=== PATIENT | male | born 1980 | race Caucasian/White ===

== ENCOUNTER → 2018-04-08 17:08 | Outpatient (CLI) | payer OTHER, SELFPAY | PROVIDERS: PCP Nurse Practitioner Family; Visit Provider Nurse Practitioner Family | DX: S01.90XA Unspecified open wound of unspecified part of head, initial encounter (principal) | CPT/HCPCS: 87070; 87077; 87186; 87205 ==

== ENCOUNTER 2019-11-03 16:17 | Observation (INO) | payer OTHER, SELFPAY ==
--- NOTE | 2019-11-03 16:29 | XR_ITS ---
PROCEDURE: XR CHEST 2V CLINICAL HISTORY: drainage from stoma Smoker, shortness of air the COMPARISON: CXR CHEST(2 VIEWS-NOT PORTABLE) from 01/06/[address] [facility] CHEST W/O CONTRAST from 01/06/2017 FINDINGS: The cardiomediastinal silhouette and pulmonary vascularity are within normal limits. There is a calcified granuloma in the left lower lobe. The lungs are otherwise clear. There is some hyperostosis along the anterior aspect of the right 1st rib in the posterior aspect of the right 2nd rib IMPRESSION: No acute findings. Dictated by: Aric Anaya MD 11/03/2019 19:41 Electronically signed by Aric Anaya MD in [place] 11/03/2019 19:41
[2019-11-03 16:30] VITALS: BP 129/84; PULSE 100; RESP 20; TEMP 36.6; O2SAT 97; BMI 31.8
--- NOTE | 2019-11-03 17:08 | PC.NURSE ---
Notified PTWm about evaluation order
[2019-11-03 17:48] LABS: Chloride 101 mmol/L (98-107); Potassium 3.7 mmoL/L (3.5-5.1); Sodium 136 mmol/L (136-145)
[2019-11-03 17:51] LABS: Blood Urea Nitrogen 6 mg/dl (9-20); Calcium 9.6 mg/dl (8.4-10.2); Carbon Dioxide 26 mmol/L (22.0-30.0); Creatinine Clearance Estimated 182 mL/min (50-200); Estimated Glomerular Filt Rate 94 ml/min (>60); GFR (African American) 114 ML/MIN (>60); Glucose 114 mg/dl (74-100)
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
[2019-11-03 20:50] VITALS: BP 131/90; PULSE 88; RESP 18; TEMP 36.6; O2SAT 97
--- NOTE | 2019-11-04 03:33 | PC.NURSE ---
A&OX4. PT TOLERATING RA WELL THIS SHIFT. PT REMAINS IN BED T/O SHIFT. PT X2 ASSIST IN BED, PT VERY RELUCTANT TO LET NURSING STAFF HELP HIM AT BEGINNING OF SHIFT. PTs BOTTOM WAS DARK BROWN AND WITH STAGE 1 PRESSURE SORES PRESENT TO BILATERAL LOWER BUTTOCK. AREA CLEANED, KEPT DRY, AND PT ENCOURAGED TO TURN Q2H. PT TOLERATED BED BATH WELL, AND ENCOURAGED TO CHANGE POSITION T/O SHIFT. PT VERY HUNGRY, TOLERATING SNACKS THIS SHIFT. PT VERY EMOTIONAL T/O SHIFT. PT HAS CRIED MULTIPLE TIMES. PT HAS HAD NO COMPLAINTS T/O THIS SHIFT. RESTING COMFORTABLY IN BED. VSS WILL CONTINUE TO MONITOR.
[2019-11-04 04:00] VITALS: BP 115/71; PULSE 65; RESP 18; TEMP 36.8; O2SAT 98
[2019-11-04 05:00] VITALS: BMI 31.1
--- NOTE | 2019-11-04 05:47 | PC.NURSE ---
PT HAS REFUSED FLUIDS AND IV AT THIS TIME. PT STATES THAT IT CAUSES HIM TOO MUCH PAIN AND HE JUST CANNOT TAKE IT.
[2019-11-04 07:35] VITALS: BP 126/74; PULSE 81; RESP 17; TEMP 36.5; O2SAT 100
--- NOTE | 2019-11-04 08:35 | HMH.PHAVTE ---
[facility] VTE Monitoring - Patient Demographics Admission date: 11/04/19 Report Date: 11/04/19 Time: 08:35 Allergies/Adverse Reactions: Patient Allergies No Known Allergies Allergy (Verified 11/03/19 14:45) Height: 1.91 m Weight: 113.852 kg - VTE Risk Labs: VTE Related Lab Results BUN 6 mg/dl (9-20) L 11/03/19 17:30 Creatinine 0.90 mg/dl (0.66-1.25) 11/03/19 17:30 Estimated Creat Clear 182 mL/min (50-200) 11/03/19 17:30 VTE Score: 1 - Prophylaxis Types of VTE Prophylaxis: TEDS Knee High (BRISSA HOSE ORDER PLACED) Location of Applied Device: Refused
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
[2019-11-04 10:46] LABS: Alanine Aminotransferase 46 U/L (12-78); Albumin Level 4.4 g/dl (3.5-5.0); Albumin/Globulin Ratio 1.4 (1.1-1.8); Alkaline Phosphatase 65 U/L (38-126); Anion Gap 9.9 mEq/L (5-15); Aspartate Amino Transferase 33 U/L (17-59); Bilirubin,Total 1.9 mg/dl (0.2-1.3); Blood Urea Nitrogen 8 mg/dl (9-20); Calcium 9.6 mg/dl (8.4-10.2); Carbon Dioxide 28 mmol/L (22.0-30.0); Chloride 102 mmol/L (98-107); Creatinine Clearance Estimated 161 mL/min (50-200); Estimated Glomerular Filt Rate 84 ml/min (>60); GFR (African American) 101 ML/MIN (>60); Globulin 3.2 g/dL (1.3-3.2); Glucose 102 mg/dl (74-100); Potassium 3.9 mmoL/L (3.5-5.1); Sodium 136 mmol/L (136-145); Total Protein,Serum 7.6 g/dl (6.3-8.2)
[2019-11-04 10:50] LABS: Basophils # 0.2 K/mm3 (0-0.2); Basophils % 2.2 % (0.1-2.0); Eosinophils # 0.3 K/mm3 (0.0-0.4); Eosinophils % 2.4 % (0.1-12.0); Hematocrit 51.8 % (42.0-52.0); Lymphocytes # 4.1 K/mm3 (0.7-4.5); Lymphocytes % 36.5 % (10-50); Mean Corpuscular HGB Conc 34.8 g/dL (31.8-35.4); Mean Corpuscular Hemoglobin 29.8 pg (27.0-31.2); Mean Corpuscular Volume 85.7 fl (80-94); Mean Platelet Volume 7.6 fl (7.4-10.4); Monocytes # 0.6 K/mm3 (0.1-1.0); Monocytes % 5.4 % (1.7-9.3); Neutrophils % 53.5 % (37.0-80.0); Platelet Count 350 K/mm3 (142-424); Red Blood Count 6.04 M/mm3 (4.60-6.20); Red Cell Distribution Width 14.6 % (11.5-17.5); White Blood Count 11.2 K/mm3 (4.8-10.8)
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
[2019-11-04 15:37] VITALS: BP 124/71; PULSE 85; RESP 20; TEMP 36.7; O2SAT 99
[2019-11-04 19:53] VITALS: BP 119/71; PULSE 79; RESP 16; TEMP 36.4; O2SAT 98
--- NOTE | 2019-11-04 20:19 | PC.NURSE ---
PATIENT HAS SAT ON SIDE OF BED 2X DURING THIS RN SHIFT. PATIENT TOLERATED WELL. PATIENT HAS COMPLAINED OF IV. THIS RN HAS EXPLAINED TO PATIENT THAT HE NEEDS FLUIDS TO STAY HYDRATED. PATIENT VERBALIZED AN UNDERSTANDING. NO OTHER NEEDS AT THIS TIME.
[2019-11-05 04:00] VITALS: BP 116/69; PULSE 78; RESP 18; TEMP 36.4; O2SAT 97
--- NOTE | 2019-11-05 04:44 | PC.NURSE ---
A&O X4. PT RESTED WELL THIS AM WITH EYES CLOSED. C/O PAIN IN LEFT HAND FROM PREVIOUS FALL. ADMIN TYLENOL PER MAR PER PT REQUEST. UPON REASSESSMENT PT STATES ADEQUATE PAIN RELIEF. BILATERAL LUNGS NOTED CLEAR T/O UPON AUSCULTATION. TOLERATED RA WELL WITH NO COMPLAINTS. MILD WEAKNESS NOTED ON LEFT SIDE EXTREMITIES, PT BASELINE FROM PREVIOUS CVA. NO N/V/D NOTED. NO EDEMA NOTED. USE OF URINAL INDEPENDENTLY AT BEDSIDE. URINE NOTED CLEAR AND DARK YELLOW IN COLOR. REFUSED TEDS. VSS. REMAINS SAFE. CALL LIGHT WITHIN REACH. WILL CONTINUE TO MONITOR.
[2019-11-05 05:00] VITALS: BMI 31.5
[2019-11-05 07:10] VITALS: BP 116/77; PULSE 77; RESP 20; TEMP 36.6; O2SAT 96
--- NOTE | 2019-11-05 10:10 | HMH.ACPN2 ---
Internal Medicine - PN: Subj *Date: 11/05/19 *Time: 09:10 Interval history: pt states he rested well. no c/o at this time Exam Vital signs and Labs for Last 24 Hours: Temp Pulse Resp BP Pulse Ox 97.9 F 77 20 116/77 96 11/05/19 07:10 11/05/19 07:10 11/05/19 07:10 11/05/19 07:10 11/05/19 07:10 Laboratory Results - last 24 hr 11/04/19 10:20: WBC 11.2 H, RBC 6.04, Hgb 18.0, Hct 51.8, MCV 85.7, MCH 29.8, MCHC 34.8, RDW 14.6, Plt Count 350, MPV 7.6, Neut % (Auto) 53.5, Lymph % (Auto) 36.5, [place] % (Auto) 5.4, Eos % (Auto) 2.4, Baso % (Auto) 2.2 H, Neut # (Auto) 6.0, Lymph # (Auto) 4.1, [place] # (Auto) 0.6, Eos # (Auto) 0.3, Baso # (Auto) 0.2 11/04/19 10:20: Sodium 136, Potassium 3.9, Chloride 102, Carbon Dioxide 28, Anion Gap 9.9, BUN 8 L D, Creatinine 1.00, Estimated Creat Clear 161, Estimated GFR 84, Est GFR ( Amer) 101, Glucose 102 H, Calcium 9.6, Total Bilirubin 1.9 H, AST 33, ALT 46, Alkaline Phosphatase 65, Total Protein 7.6, Albumin 4.4, Globulin 3.2, Albumin/Globulin Ratio 1.4 I & O for Last 24 hours: Intake & Output 11/02/19 11/03/19 11/04/19 11/05/19 11:59 11:59 11:59 11:59 Intake Total 1949 / 1949 1633 / 1633 Output Total 1000 / 1000 1300 / 1300 Balance 949 / 949 333 / 333 Weight 251 lb 253 lb 6 oz - Constitutional no acute distress, chronically ill appearing - *Routine HEENT Exam Head: Present: normocephalic Eye: Present: PERRL ENT: Present: mucous membranes moist Comments: rt lateral skull concave- old head trauma - *Routine Neck Exam Present: supple. Absent: lymphadenopathy Comments: old trache stoma with yellow discharge - *Routine Respiratory Exam Present: CTA bilaterally - *Routine Cardiovascular Exam Present: RRR - *Routine Abdominal Exam Present: soft, normoactive bowel sounds. Absent: tenderness - *Routine Extremities Exam Absent: cyanosis, clubbing, edema - *Routine Skin Exam Present: warm, wounds. Absent: rash Comments: stage 1 on suzi buttocks - *Routine Neurological Exam Present: alert, oriented X3 left side weakness- old cva upper ext contracture to hand and limited rom - Routine Psychiatric Exam Present: normal affect Assessment and Plan (1) Seizure after head injury Current visit: Yes Status: Acute Category: Medical Code(s): R56.1 - Post traumatic seizures (2) Wheelchair bound Current visit: Yes Status: Acute Category: Medical Code(s): Z99.3 - Dependence on wheelchair (3) Depressed Current visit: Yes Status: Acute Qualifiers: Depression Type: reactive depression Qualified Code(s): F32.9 - Major depressive disorder, single episode, unspecified Category: Medical Code(s): F32.9 - Major depressive disorder, single episode, unspecified (4) TBI (traumatic brain injury) Current visit: No Status: Chronic Qualifiers: Encounter type: sequela Loss of consciousness presence/duration: with LOC of unspecified duration Qualified Code(s): S06.9X9S - Unspecified intracranial injury with loss of consciousness of unspecified duration, sequela Category: Medical Code(s): S06.9X9A - Unspecified intracranial injury with loss of consciousness of unspecified duration, initial encounter - Assessment and plan all Dx Assessment and Plan for all problems:: discussed pt with dr carnes all orders per trice carnes to see pt later today wait rehab placement
[2019-11-05 15:40] VITALS: BP 125/59; PULSE 86; RESP 18; TEMP 36.7; O2SAT 96
--- NOTE | 2019-11-05 18:43 | INFXCTL.NOTE ---
Pt is alert and oriented and able to make needs known verbally. RR even and unlabored. Has had no complaints this shift and has ate well. IV SL in RFA. CB in easy reach. VSS. Have encouraged pt to turn and reposition, he has some, but refused to completely turn and stay on side from supine position. Have explained reasoning. Will cont to encourage. Voids per urinal.
[2019-11-05 19:55] VITALS: BP 111/59; PULSE 90; RESP 18; TEMP 36.7; O2SAT 96
--- NOTE | 2019-11-05 20:30 | PC.NURSE ---
Pt alert and oriented and able to make needs known x4. RR even and unlabored. Have encouraged pt to turn and reposition completely from supine position and he has refused, but is able to move independently in bed. Have educated on why pt needs to turn completely from supine position. Pt verbs understanding. VSS. Has had no complaints this shift. NAD. Lungs cta, s1,s2 noted. Has voided per urinal this shift and ate well. CB in reach.
[2019-11-06 04:00] VITALS: BP 120/77; PULSE 76; RESP 18; TEMP 36.5; O2SAT 95
[2019-11-06 05:00] VITALS: BMI 31.7
--- NOTE | 2019-11-06 05:16 | PC.NURSE ---
A&O X4. NO ACUTE CHANGES NOTED FROM PREVIOUS SHIFT. PT RESTED WELL T/O SHIFT WITH EYES CLOSED. TOLERATED RA WELL WITH NO C/O SOA. C/O PAIN AT IV SITE ON PT'S RIGHT WRIST. PT ALSO STATES IV TUBING IS AN INCONVENIENCE, HE KEEPS BUMPING IT ON THINGS. NO S/S OR IRRITATION OR INFILTRATION. PT AGREED TO KEEP IV IN PLACE, MOVED BEDSIDE TABLE AWAY FROM OVER THE BED TO DECREASE CHANGES OF HITTING IV SITE. IV FLUSHES WELL. NO FURTHER COMPLAINTS T/O SHIFT. ALLOWED STAFF TO Q2H TURN HIM FOR PRESSURE RELIEF OFF BUTTOCKS. REFUSED TO GET OOB THIS SHIFT. ENCOURAGED PT TO GET UP TO CHAIR THIS AM FOR BREAKFAST. WILL CONTINUE TO MONITOR. REFUSED TEDS. REMAINS SAFE. CALL LIGHT WITHIN REACH. URINE NOTED CLEAR AND DARK YELLOW IN COLOR. INDEPENDENT USE OF URINAL AT BEDSIDE.
[2019-11-06 08:00] VITALS: BP 132/69; PULSE 92; RESP 20; TEMP 36.4; O2SAT 97
--- NOTE | 2019-11-06 08:47 | P.PN_ITS ---
Internal Medicine - PN: Subj *Date: 11/08/19 *Time: 06:51 Interval history: doing better- more alert Exam Vital signs and Labs for Last 24 Hours: Temp Pulse Resp BP Pulse Ox 97.6 F 92 H 20 132/69 97 11/06/19 08:00 11/06/19 08:00 11/06/19 08:00 11/06/19 08:00 11/06/19 08:00 I & O for Last 24 hours: Intake & Output 11/03/19 11/04/19 11/05/19 11/06/19 11:59 11:59 11:59 11:59 Intake Total 1949 / 1949 1633 / 1633 1700 / 1700 Output Total 1000 / 1000 1550 / 1550 1750 / 1750 Balance 949 / 949 83 / 83 -50 / -50 Weight 251 lb 253 lb 6 oz 255 lb 8 oz - Constitutional no acute distress, obese - *Routine HEENT Exam Head: Present: normocephalic Eye: Present: EOMI, PERRL ENT: Present: mucous membranes dry - *Routine Neck Exam Absent: JVD - *Routine Respiratory Exam Present: decreased breath sounds - *Routine Cardiovascular Exam Present: RRR - *Routine Abdominal Exam Present: soft - *Routine Extremities Exam Absent: calf tenderness - *Routine Skin Exam Present: intact - *Routine Neurological Exam Present: alert, CN II-XII intact - Routine Psychiatric Exam Absent: good insight Assessment and Plan (1) Seizure after head injury Current visit: Yes Status: Acute Category: Medical Code(s): R56.1 - Post traumatic seizures (2) Wheelchair bound Current visit: Yes Status: Acute Category: Medical Code(s): Z99.3 - Dependence on wheelchair (3) Depressed Current visit: Yes Status: Acute Qualifiers: Depression Type: reactive depression Qualified Code(s): F32.9 - Major depressive disorder, single episode, unspecified Category: Medical Code(s): F32.9 - Major depressive disorder, single episode, unspecified (4) TBI (traumatic brain injury) Current visit: No Status: Chronic Qualifiers: Encounter type: sequela Loss of consciousness presence/duration: with LOC of unspecified duration Qualified Code(s): S06.9X9S - Unspecified intracranial injury with loss of consciousness of unspecified duration, sequela Category: Medical Code(s): S06.9X9A - Unspecified intracranial injury with los s of consciousness of unspecified duration, initial encounter
[2019-11-06 10:57] LABS: Basophils # 0.2 K/mm3 (0-0.2); Basophils % 2.5 % (0.1-2.0); Eosinophils # 0.4 K/mm3 (0.0-0.4); Eosinophils % 4.1 % (0.1-12.0); Hematocrit 52.6 % (42.0-52.0); Hemoglobin 17.8 g/dL (14.1-18.0); Lymphocytes % 32.4 % (10-50); Mean Corpuscular HGB Conc 33.8 g/dL (31.8-35.4); Mean Corpuscular Volume 88.7 fl (80-94); Mean Platelet Volume 7.8 fl (7.4-10.4); Monocytes # 0.4 K/mm3 (0.1-1.0); Monocytes % 4.7 % (1.7-9.3); Neutrophils # 5.3 K/mm3 (1.8-7.8); Neutrophils % 56.3 % (37.0-80.0); Platelet Count 295 K/mm3 (142-424); Red Blood Count 5.93 M/mm3 (4.60-6.20); Red Cell Distribution Width 14.9 % (11.5-17.5); White Blood Count 9.3 K/mm3 (4.8-10.8)
[2019-11-06 11:10] LABS: Anion Gap 10.3 mEq/L (5-15); Blood Urea Nitrogen 9 mg/dl (9-20); Calcium 9.6 mg/dl (8.4-10.2); Carbon Dioxide 27 mmol/L (22.0-30.0); Chloride 103 mmol/L (98-107); Creatinine Clearance Estimated 205 mL/min (50-200); Estimated Glomerular Filt Rate 108 ml/min (>60); GFR (African American) 131 ML/MIN (>60); Glucose 93 mg/dl (74-100); Potassium 4.3 mmoL/L (3.5-5.1); Sodium 136 mmol/L (136-145)
[2019-11-06 11:33] LABS: T4 (Thyroxine) 9.4 ug/dl (5.53-11.0)
[2019-11-06 16:00] VITALS: BP 127/70; PULSE 81; RESP 20; TEMP 36.9; O2SAT 100
--- NOTE | 2019-11-06 19:14 | PC.NURSE ---
report given to savanah
[2019-11-06 20:00] VITALS: BP 145/64; PULSE 99; RESP 20; TEMP 36.9; O2SAT 97
[2019-11-07 03:42] VITALS: BP 137/71; PULSE 76; RESP 17; TEMP 36.6; O2SAT 98
[2019-11-07 05:00] VITALS: BMI 32.8
--- NOTE | 2019-11-07 05:08 | PC.NURSE ---
No acute changes this shift. Pt rang out frequently for snacks and for his urinal to be emptied. Pt is voiding clear, yellow urine independently using urinal. No BM this shift. Pt is repositioning himself in bed independently. Staff has pulled pt up in bed on occasions. VSS.
[2019-11-07 08:00] VITALS: BP 106/67; PULSE 77; RESP 18; TEMP 36.7; O2SAT 99
--- NOTE | 2019-11-07 10:01 | P.PN_ITS ---
Internal Medicine - PN: Subj *Date: 11/07/19 *Time: 10:03 Interval history: 39-year-old male patient laying in bed resting quietly, awakens to verbal stimuli. He denies any needs or concerns at this time says he is ready to begin therapies. Exam Vital signs and Labs for Last 24 Hours: Temp Pulse Resp BP Pulse Ox 98.1 F 77 18 106/67 L 99 11/07/19 08:00 11/07/19 08:00 11/07/19 08:00 11/07/19 08:00 11/07/19 08:00 Laboratory Results - last 24 hr 11/06/19 10:40: WBC 9.3, RBC 5.93, Hgb 17.8, Hct 52.6 H, MCV 88.7, MCH 30.0, MCHC 33.8, RDW 14.9, Plt Count 295, MPV 7.8, Neut % (Auto) 56.3, Lymph % (Auto) 32.4, [place] % (Auto) 4.7, Eos % (Auto) 4.1, Baso % (Auto) 2.5 H, Neut # (Auto) 5.3, Lymph # (Auto) 3.0, [place] # (Auto) 0.4, Eos # (Auto) 0.4, Baso # (Auto) 0.2 11/06/19 10:40: Sodium 136, Potassium 4.3, Chloride 103, Carbon Dioxide 27, Anion Gap 10.3, BUN 9, Creatinine 0.80, Estimated Creat Clear 205, Estimated GFR 108, Est GFR ( Amer) 131 D, Glucose 93, Calcium 9.6 11/06/19 10:40: TSH 3.00, Thyroxine (T4) 9.4 I & O for Last 24 hours: Intake & Output 11/04/19 11/05/19 11/06/19 11/07/19 23:59 23:59 23:59 23:59 Intake Total 2612 / 2612 1570 / 1570 2800 / 2800 940 / 940 Output Total 1650 / 1650 1450 / 1450 1999 / 1999 750 / 750 Balance 962 / 962 120 / 120 800 / 800 190 / 190 Weight 251 lb 253 lb 6 oz 255 lb 8 oz 264 lb 7 oz - Constitutional no acute distress - *Routine HEENT Exam ENT: Present: mucous membranes moist - *Routine Neck Exam Present: full ROM, trachea midline. Absent: JVD, tracheal deviation - *Routine Respiratory Exam Present: CTA bilaterally. Absent: accessory muscle use - *Routine Cardiovascular Exam Present: RRR - *Routine Abdominal Exam Present: soft, normoactive bowel sounds. Absent: firm - *Routine Extremities Exam Absent: calf tenderness - *Routine Skin Exam Present: wounds Comments: STG I Bilat buttocks - *Routine Neurological Exam Present: alert, oriented X3 Left side weakness- old cva upper ext contracture to hand and limited rom Assessment and Plan (1) Seizure after head injury Current visit: Yes Status: Acute Category: Medical Code(s): R56.1 - Post traumatic seizures (2) Wheelchair bound Current visit: Yes Status: Acute Category: Medical Code(s): Z99.3 - Dependence on wheelchair (3) Depressed Current visit: Yes Status: Acute Qualifiers: Depression Type: reactive depression Qualified Code(s): F32.9 - Major depressive disorder, single episode, unspecified Category: Medical Code(s): F32.9 - Major depressive disorder, single episode, unspecified (4) TBI (traumatic brain injury) Current visit: No Status: Chronic Qualifiers: Encounter type: sequela Loss of consciousness presence/duration: with LOC of unspecified duration Qualified Code(s): S06.9X9S - Unspecified intracranial injury with loss of consciousness of unspecified duration, sequela Category: Medical Code(s): S06.9X9A - Unspecified intracranial injury with loss of consciousness of unspecified duration, initial encounter - Assessment and plan all Dx Assessment and Plan for all problems:: Rounded with Dr. Maya, all orders per Dr. Maya 1. Awaiting skilled nursing placement
--- NOTE | 2019-11-07 10:10 | SW/DCPLANNER ---
Addendum entered by [facility] 11/08/19 10:02: Bruna from [facility] has called me back stating that this patient is NOT appropriate for [facility] at this time. I am currently waiting to hear back from Valery with [facility] and Jayme from [facility] Waiver. Addendum entered by [facility] 11/07/19 19:39: Patient has signed all paperwork from Valery at [facility] regarding [facility] Waiver services. Addendum entered by [facility] 11/07/19 16:26: Valery from [facility] has been in contact with [facility] and [place]. Addendum entered by [facility] 11/07/19 14:51: [facility] has refused this patient. Valery from [facility] is reviewing this patients information and will be in contact with [facility]. Jayme from [facility] is reviewing patient information and will begin Waiver process to see what services are available for this patient. Addendum entered by [facility] 11/07/19 14:27: Valery from [facility] has stated that her thoughts are patient would be a good candidate for [facility] and that she will assist with this process. Valery has also stated that she is going to fax me information for patient and MD to begin Waiver process for this patient. I will continue to follow up with Valery regarding this patient. Addendum entered by [facility] 11/07/19 13:51: I have spoke with Joi and patients sister (MARIYA) Kelli. Joi has stated that she has also been searching for placement for this patient for the past couple months. Joi has stated that she would be fine with this patient discharging home with home health services (previously used [facility]) and [facility] Waiver services. I have contacted Jayme with [facility] regarding which services this patient would be a candidate for: she will review and contact me back this afternoon or in the AM. Patients sister stated that she would agree with this plan as well. I am waiting to hear back from Jayme regarding [facility] Waiver services and I am currently waiting to hear back from [facility]. I will continue to follow up with all services/facilities, [facility], and patient/family. Addendum entered by [facility] 11/07/19 13:18: [facility] have stated that they can NOT take this patient and have evaluated this patient in the past. Taniya with [facility] has stated that since patient has such a soft spot in his head and does not wear a helmet they can NOT accept this patient nor can any of their sister facilities. I did receive a voicemail from Joi with [facility] and I will attempt to contact her back. Addendum entered by [facility] 11/07/19 11:35: Bel with [facility] has called back stated they can NOT meet this patients needs at this time. Patient information has also been faxed to [facility] and [facility]. Addendum entered by [facility] 11/07/19 11:04: Patient information has also been faxed to [facility] at this time. Original Note: This patient was residing with his sister prior to hospital admission. Patient was admitted OBS to [facility] on Wednesday11/03/19 for placement purposes. Patients sister has stated that she is unable to care for patient at this time and he is need of placement for rehab. I have spoke with this patient this morning regarding rehab placement. Patient stated that he is willing to go anywhere for placement and does not have to be in [facility]. I have informed patient that he will be TYRA pending, must stay at least 30 days and his payment will be most of his monthly income check. Patient is agreeable to situation. At this time facilities that do NOT have beds: [facility], [facility], [facility], and [facility]. Patient information has been faxed to [facility] at this time.
--- NOTE | 2019-11-07 12:05 | HMH.OTEV ---
OT Inpatient Evaluation Rehab OT IP Evaluation Start: 11/03/19 16:42 Freq: ONCE Status: Complete Protocol: Document 11/07/19 11:57 CHRIS (Rec: 11/07/19 12:05 [id number] Rehab OT IP Assessment Subjective History Pt oriented x 3 on arrival. Pt agreeable to engage in therapy evaluation. Pt was admitted via Dr. Maya's office for weakness on 2019. Pt has a past medical history of TBI (2018), CVA ( 2018), hepatitis, HTN, and seizures. Pt reports prior to being admitted to the hospital he lived at home with his sister. He explains he was able to dress and feed himself, but he was unable to shower on his own. Pt reports usually his sister completes all IADLs like cleaning, cooking, and laundry. Pt did use a walker and wheelchair for transfers. Pt explains he has become increasingly weaker and he wants to get stronger and be able to do more for himself. Subjective I need to be able to do more. Objective Patient Orientation Person,Place,Birthday Upper Extremity Gross ROM Mod Limitation 50% Shoulder ROM Limitations Muscle Weakness Elbow ROM Limitations Muscle Weakness Wrist Limitations of Range of Motion Muscle Weakness Bed Mobility bed mobility-scooting,bed mobility - supine/sit,bed mobility - rolling Assist Level Supervision/Stand by Transfer Training Sit/Stand Transfer Assist Level Minimal x 1 (25% assist) Feeding Ability Independent Lower Body Dressing Ability Standby Assistance Upper Body Dressing Ability Standby Assistance Rehab OT IP prob,goals,plan Problems Date of Evaluation: 11/07/19 OT IP Problems Bed Mobility,Transfers,Gait, Balance,Self care,Safety Rehab Potential Rehab Potential Good Equipment Needs Assistive Devices Rolling / Wheeled Walker Plan OT intervention Plan Bed Mobility,Transfers,Gait, Balance,Self care,Safety,
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
[2019-11-07 16:00] VITALS: BP 135/68; PULSE 65; RESP 14; TEMP 36.9; O2SAT 99
--- NOTE | 2019-11-07 18:58 | PC.NURSE ---
PT IS RESTING IN BED. NO COMPLAINTS OF PAIN OR SOA. PT HAS BEEN EATING AND DRINKING ALL SHIFT. PT PARTICIPATED GETTING OOB WITH PHYSICAL THERAPY BUT WANTED TO GO BACK TO BED AFTER 30 MIN. OF BEING UP IN THE CHAIR. VOIDING PER URINAL . ALERT AND ORIENTED X4. LEFT SIDED WEAKNESS NOTED. VSS. LUNG SOUNDS CLEAR. BOWEL SOUNDS NORMAL. WILL CONTINUE TO MONITOR.
[2019-11-07 20:01] VITALS: BP 141/81; PULSE 97; RESP 18; TEMP 36.8; O2SAT 98
[2019-11-08 04:00] VITALS: BP 113/81; PULSE 76; RESP 18; TEMP 36.7; O2SAT 95
[2019-11-08 04:47] VITALS: BMI 32.9
--- NOTE | 2019-11-08 06:52 | PC.NURSE ---
A&O X4. PT RESTED INTERMITTENTLY T/O SHIFT WITH EYES CLOSED. NO ACUTE CHANGES NOTED FROM PREVIOUS SHIFT. TOLERATED RA WELL WITH NO C/O SOA. PT ABLE TO SELF TURN IN BED. NO C/O PAIN AT IV SITE THIS SHIFT. IV FLUSHES WELL, REMAINS SL. PT UP TO CHAIR THIS AM WITH ASSIST X2. PT'S APPETITE EXCELLENT. REFUSED TEDS. VOIDING PER URINAL AT BEDSIDE. URINE NOTED CLEAR, DARK YELLOW WITH STRONG ODOR. VSS. REMAINS SAFE. SEIZURES PADS REMAIN IN PLACE. CALL LIGHT WITHIN REACH. WILL CONTINUE TO MONITOR.
[2019-11-08 08:00] VITALS: BP 147/66; PULSE 79; RESP 12; TEMP 36.7; O2SAT 97
--- NOTE | 2019-11-08 08:34 | HMH.ACPN2 ---
Internal Medicine - PN: Subj *Date: 11/08/19 *Time: 08:34 Exam Vital signs and Labs for Last 24 Hours: Temp Pulse Resp BP Pulse Ox 98.1 F 76 18 113/81 95 11/08/19 04:00 11/08/19 04:00 11/08/19 04:00 11/08/19 04:00 11/08/19 04:00 I & O for Last 24 hours: Intake & Output 11/05/19 11/06/19 11/07/19 11/08/19 11:59 11:59 11:59 11:59 Intake Total 1633 / 1633 1700 / 1700 3120 / 3120 10 Output Total 1550 / 1550 1750 / 1750 2200 / 2200 2049 / 2049 Balance 83 / 83 -50 / -50 920 / 920 -0 / -0 Weight 253 lb 6 oz 255 lb 8 oz 264 lb 7 oz 265 lb 3 oz Assessment and Plan (1) Seizure after head injury Current visit: Yes Status: Acute Category: Medical Code(s): R56.1 - Post traumatic seizures (2) Wheelchair bound Current visit: Yes Status: Acute Category: Medical Code(s): Z99.3 - Dependence on wheelchair (3) Depressed Current visit: Yes Status: Acute Qualifiers: Depression Type: reactive depression Qualified Code(s): F32.9 - Major depressive disorder, single episode, unspecified Category: Medical Code(s): F32.9 - Major depressive disorder, single episode, unspecified (4) TBI (traumatic brain injury) Current visit: No Status: Chronic Qualifiers: Encounter type: sequela Loss of consciousness presence/duration: with LOC of unspecified duration Qualified Code(s): S06.9X9S - Unspecified intracranial injury with loss of consciousness of unspecified duration, sequela Category: Medical Code(s): S06.9X9A - Unspecified intracranial injury with loss of consciousness of unspecified duration, initial encounter
[2019-11-08 09:01] VITALS: PULSE 79; RESP 12; O2SAT 97
--- NOTE | 2019-11-08 10:39 | SW/DCPLANNER ---
Addendum entered by [facility] 11/08/19 17:01: I have contacted patients sister (Kelli) stating that patient is now ready for discharge. Kelli stated that she has been having car trouble and hopes to come this evening to pick patient up. I have again informed Kelli that this patient is ready for discharge. Addendum entered by [facility] 11/08/19 15:10: Mary Alice with [employer] has stated that Trapeze bar order must be approved by insurance. [facility] will follow up with patient/sister once approved. Addendum entered by [facility] 11/08/19 13:36: Jad from [facility] has stated they will accept this patient for home health services. Addendum entered by [facility] 11/08/19 11:50: Patient information has been faxed to [facility] for a trapeze bar and to [facility] for home health services. Addendum entered by [facility] 11/08/19 10:51: I did speak with patients sister and she is agreeable with this plan. Sister stated that she does feel safe taking this patient home today. Sister stated that she will be able to transport patient home later today. I will set up home health services. I did offer to order a Sandra Lift for this patient and sister stated that was not necessary at this time. Sister did ask about a bar for hospital bed to assist in pulling himself up. I will follow up with [facility] regarding this DME. Original Note: I have attempted to find placement for this patient: [place], [place], [place], [facility], [facility], [facility], [facility], [facility] and [facility]. No SNF level of care if willing to accept this patient at this time. I have spoke with Valery from [facility] regarding referral that was faxed to her. Valery spoke with [facility] whom has also denied this patient. Valery has stated that she will continue to follow up with this patient, set up at home services and add patient to residential waiting list as soon as all guidelines are lifted due to pandemic. Patients sister was agreeable to take patient home yesterday. I have made several attempts this morning to contact patients sister but her phone is currently turned off. I will continue to contact sister regarding discharge plan: discharging home with sister, sister stated that she has other help at home, set up home health services, Valery with [facility] to continue T[facility]RA waiver service process and residential waiting list. MD agrees with this plan. I have also spoke with Joi from [facility] and she concurs with this plan as well. I will inform patient. Patient will discharge home later today. I will set patient up with home health services.
--- NOTE | 2019-11-08 10:56 | PC.NURSE ---
Pt will need a trapeze bar for assistance to get in and out of bed.
[2019-11-08 16:00] VITALS: BP 126/74; PULSE 81; RESP 12; TEMP 36.8; O2SAT 97
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
--- NOTE | 2019-11-08 17:48 | PC.NURSE ---
Discharge has been completed. IV DC'd. Pt is currently awaiting a ride home.
--- NOTE | 2019-11-08 19:09 | PC.NURSE ---
report given to ac
--- NOTE | 2019-11-08 19:18 | SW/DCPLANNER ---
Patients sister will not answer my phone call at this time. I did informed sister this evening on the phone that patient is ready for discharge.
[2019-11-08 20:00] VITALS: BP 129/69; PULSE 92; RESP 17; TEMP 36.6; O2SAT 96
--- NOTE | 2019-11-08 21:31 | PC.NURSE ---
notified dr carnes of pt's sister not arriving nor answering her phone for pt's d/c pickup this evening.
--- NOTE | 2019-11-08 22:48 | PC.NURSE ---
spoke with carline, pt's sister/caregiver. she informed me that she would not be able to pickup the pt this evening. this rn attempted to call her 3 times since 1899, leaving one voicemail for return phone call. she states her car broke down earlier today and she has been trying to find a ride to come get him. she has spent her evening walking [place] [address] to get help. she plans to sell her car in the am and use the money to purchase a prepaid card so she can get to [place] and rent a car. she plans to rent a car so she can pick him up tomorrow afternoon. this rn instructed her to please call [facility] and keep staff informed of her plan of action tomorrow so we can plan for discharge. carline states she will call before lunch.
[2019-11-09 04:00] VITALS: BP 115/82; PULSE 68; RESP 16; TEMP 36.7; O2SAT 100
[2019-11-09 05:00] VITALS: BMI 32.5
--- NOTE | 2019-11-09 06:28 | PC.NURSE ---
NO ACUTE CHANGES NOTED SINCE PREVIOUS SHIFT. CONTINUE TO AWAIT FOR RIDE FOR D/C HOME WITH HOME HEALTH. SPOKE WITH PT'S SISTER LAST NIGHT, STATES SHE WILL BE HERE TODAY TO PICK HIM UP. REMAINS A&O X4. NO PAIN. NO SOA. TOLERATES RA WELL. PT ABLE TO SELF TURN WHILE LAYING IN BED. REFUSED TEDS. NO IV ACCESS THIS SHIFT. EXCELLENT APPETITE, REQUESTED MULTIPLE SNACKS AND SODAS THIS SHIFT. ENCOURAGED PT TO DRINK MORE WATER. VSS. REMAINS SAFE. SEIZURE PADS REMAIN IN PLACE. CALL LIGHT WITHIN REACH. WILL CONTINUE TO MONITOR.
[2019-11-09 08:00] VITALS: BP 125/78; PULSE 73; RESP 16; TEMP 36.6; O2SAT 97
[2019-11-09 09:59] LABS: Levetiracetam (Keppra) <1.0 ug/mL (10.0-40.0)
--- NOTE | 2019-11-09 10:58 | SW/DCPLANNER ---
Addendum entered by [facility] 11/13/19 19:41: [facility] has called back stating they did attempt to get in touch with this patient today with no answer. [facility] will NOT begin services for this patient. Addendum entered by [facility] 11/10/19 11:59: [facility] has called me back and stated they have attempted to contact patients family and there was no answer. [facility] has stated due to no answer they can not admit patient to services. I have notified Joi with [facility] regarding situation. Addendum entered by [facility] 11/10/19 11:45: Glo from [facility] stated that they will begin services for this patient. Addendum entered by [facility] 11/10/19 11:16: Patient information has been faxed to [facility]. Addendum entered by [facility] 11/09/19 18:56: Facilities reviewing patient referrals at this time: [facility], [facility], per Daina's request: [facility] along with [facility]. I will follow up with facilities in the AM. Patients sister has not arrived to [facility] to transport patient home. I did get ahold of [phone] number she called off of earlier and patients neighbor answered and stated that Kelli wasnt there she was in town. Addendum entered by [facility] 11/09/19 18:38: Several attempts has been made by myself to contact patients sister with no answer: voice messages have been left. Addendum entered by [facility] 11/09/19 16:09: [facility] has denied this patient. I was able to speak with patients sister at [phone]...sister stated that she will be here this afternoon to pick patient up. I will set up home health services for this patient once discharging home. I will also continue to follow up with LTC facilities regarding referral along with [facility]. Addendum entered by [facility] 11/09/19 15:12: Patient information has also been faxed to Judit Jimenez) at [phone]. Addendum entered by [facility] 11/09/19 14:59: Michelle from [facility] has called back stating they do have male [facility] beds available: patient information has been faxed ([phone]). Addendum entered by [facility] 11/09/19 14:53: I have also contacted: Jono Flores (not accepting new admissions), Jose (voicemail left for admissions), Briana (voicemail left for Ninoska in Admissions) and Kayla ([facility] bed available) information faxed. [facility] is currently looking into this patient as well. I have also left a voice message with Yadira at [facility] at [phone]. Addendum entered by [facility] 11/09/19 14:42: Patient does technically reside in [facility]. I have contact [facility] dispatch ([phone]) to do a Welfare check. [facility] Distribution Supervisor office will follow up with me. Addendum entered by [facility] 11/09/19 14:27: Joi with [facility] has stated that her supervisor of communications has denied her request to do a home visit at this time due to COVID-19. Addendum entered by [facility] 11/09/19 14:07: MASOOD has spoke with [facility] [place], [facility] all [facility] denied this patient. I have spoke with Taniya at [facility] and she has stated to fax the referral and she will review/Daina has spoke with at [facility] as well. Patient information has also been faxed to [facility]: [facility] has stated they can review, possibly accept but will not have a bed open till the end of next week. I will continue to follow up with [facility] worker as well. Addendum entered by [facility] 11/09/19 13:25: [facility] has refused this patient at this time. Joi with [facility] is going to ask her supervisor of communications if she can do a home visit to follow up with patients sister. Addendum entered by [facility] 11/09/19 12:33: [facility] can NOT accept this patient at this time due to needing a Medicaid bed. I have left a voice message for [facility]. I have also made several attempts to contact patients sister and yamilet
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
[2019-11-09 16:00] VITALS: BP 129/66; PULSE 90; RESP 18; TEMP 36.9; O2SAT 100
--- NOTE | 2019-11-09 19:18 | PC.NURSE ---
6537 THIS RN RECEIVED A PHONE CALL FROM PATIENT'S SISTER STATING THAT SHE IS WAITING FOR A RIDE TO CODING COMPLIANCE SPECIALIST HER BROTHER. THIS RN INFORMED HER THAT STAFF FROM [facility] HAS BEEN TRYING TO CONTACT HER. SHE STATED THAT SHE DOES NOT HAVE MINUTES FOR HER PHONE. THIS RN ASKED HER FOR THE NUMBER SHE WAS CALLING FROM. PATIENT GAVE THIS RN THE NUMBER. THIS RN PASSED ALONG THE INFORMATION TO EDDIE CARRILLO. PATIENT'S SISTER HAS NOT SHOWN UP OF YET.
[2019-11-09 20:00] VITALS: BP 126/78; PULSE 88; RESP 18; TEMP 36.4; O2SAT 99
--- NOTE | 2019-11-09 21:06 | PC.NURSE ---
Care provided by EKATERINA Peñaloza was under direct supervision of Conner Walls RN.
--- NOTE | 2019-11-09 23:20 | PC.NURSE ---
@ 2157 pt's sister Kelli called this RN stating she was in [place] and had a friend that was able to bring her right away to get pt. This RN verified w/ Dr. Maya that it was still appropriate for discharge. Dr. Maya sated pt could be d/c. D/C Order already in computer and new meds sent to [facility] in [place], [place]. @ 2225 This RN s/w pt's siter Kelli to let her know he can go home with her. She then requested to borrow a wheelchair as hers was at a storage facility and she could not get it right now. She was informed we could aid pt in wheelchair to her car but as the wheelchairs do not fold, it would not fit in any car. Kelli stated she would get one another way. leases and land supervisor notified of the information noted above. @ 2306 Kelli arrived to [facility], d/c packet printed and reviewed with her and pt. They are aware that pt needs appts for Alpa Hilliard and Dr. Maya's office for 1 wk follow up. Kelli stated we may call her friend's phone where they are staying at [facility] in [place] at [phone]. @ 2311 pt transferred to wheel-chair with minimal assist. All pt's belongings carried down with pt and his siter and pt assisted in the car again with minimal assist. No home meds were brought with pt and prescriptions were already electronically sent by Conrado Robledo APRN.
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
== END 2019-11-09 23:19 | disposition home or self-care (01) ==
PROVIDERS: Admitting Provider Emergency Medicine; PCP Nurse Practitioner Family; Visit Provider Emergency Medicine
DX: G40.802 Other epilepsy, not intractable, without status epilepticus (principal); I69.154 Hemiplegia and hemiparesis following nontraumatic intracerebral hemorrhage affecting left non-dominant side; V49.69XS Unspecified car occupant injured in collision with other motor vehicles in traffic accident, sequela; S06.9X0S Unspecified intracranial injury without loss of consciousness, sequela; Z99.3 Dependence on wheelchair; F32.9 Major depressive disorder, single episode, unspecified
CPT/HCPCS: 36415; 71046; 80048; 80053; 80177; 84436; 84443; 85025; 90732; 97110; 97116; 97163; 97166; 97530; G0378

== ENCOUNTER 2019-12-23 15:19 | Observation (INO) | payer OTHER, SELFPAY ==
[2019-12-23] VITALS (7 sets, daily range): BP systolic 112–137; BP diastolic 74–87; PULSE 72–87; RESP 16–18; TEMP 36.8–36.9; O2SAT 94–98; BMI 38.0; BMI 32.5
--- NOTE | 2019-12-23 15:30 | PC.NURSE ---
Spoke with Lavonne Clarke and explained the situation to her. She advised her would probably need to be admitted and they could sort things out on Wednesday with his placement status and such. She advised he been admitted for this once before but was released to his sister. [facility] is aware of his situation they have an open case
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
--- NOTE | 2019-12-23 16:20 | PC.NURSE ---
Went in with Yovany and gave pt a bedbath, removed all clothing and examined skin. Pt had minor skin breakdown on his left inner groin. Pt also minor skin break break down on his left thigh. Notified MD. Pt washed form head to toe and hair washed. PT placed in clean gown and clean bed sheets. Called dietary and got pt sandwhich and chips. Pt sitting up in bed eating tray at this time.
[2019-12-23 16:30] LABS: Basophils # 0.1 K/mm3 (0-0.2); Eosinophils # 0.3 K/mm3 (0.0-0.4); Eosinophils % 2.8 % (0.1-12.0); Hematocrit 51.5 % (42.0-52.0); Lymphocytes # 2.9 K/mm3 (0.7-4.5); Lymphocytes % 24.9 % (10-50); Mean Corpuscular HGB Conc 36.7 g/dL (31.8-35.4); Mean Corpuscular Volume 84.4 fl (80-94); Mean Platelet Volume 7.8 fl (7.4-10.4); Monocytes # 0.7 K/mm3 (0.1-1.0); Monocytes % 5.8 % (1.7-9.3); Neutrophils # 7.5 K/mm3 (1.8-7.8); Neutrophils % 65.6 % (37.0-80.0); Platelet Count 277 K/mm3 (142-424); Red Cell Distribution Width 13.7 % (11.5-17.5); White Blood Count 11.5 K/mm3 (4.8-10.8)
[2019-12-23 16:33] LABS: Hemoglobin 18.8 g/dL (14.1-18.0)
[2019-12-23 16:48] LABS: Chloride 103 mmol/L (98-107); Sodium 137 mmol/L (136-145)
[2019-12-23 16:50] LABS: Alanine Aminotransferase 28 U/L (12-78); Alkaline Phosphatase 59 U/L (38-126); Aspartate Amino Transferase 25 U/L (17-59); Bilirubin,Total 1.9 mg/dl (0.2-1.3); Blood Urea Nitrogen 18 mg/dl (9-20); Creatinine Clearance Estimated 200 mL/min (50-200); Estimated Glomerular Filt Rate 94 ml/min (>60); GFR (African American) 114 ML/MIN (>60)
[2019-12-23 16:51] LABS: Albumin Level 4.1 g/dl (3.5-5.0); Albumin/Globulin Ratio 1.4 (1.1-1.8); Calcium 9.1 mg/dl (8.4-10.2); Carbon Dioxide 27 mmol/L (22.0-30.0); Glucose 88 mg/dl (74-100); Total Protein,Serum 7.1 g/dl (6.3-8.2)
--- NOTE | 2019-12-23 17:09 | PC.NURSE ---
Dr. Maya pagedavid
--- NOTE | 2019-12-23 17:14 | PC.NURSE ---
speaking with Dr. Bolaños
--- NOTE | 2019-12-23 17:42 | PC.NURSE ---
called report to Armando
[2019-12-24 04:00] VITALS: BP 113/75; PULSE 70; RESP 17; TEMP 36.4; O2SAT 98
--- NOTE | 2019-12-24 04:25 | PC.NURSE ---
Pt has rested well t/o the night. Pt is A&O x4. Lung sounds are clear t/o and pt has active bowel sounds in all 4 quadrants. Pt received a complete bed bath this shift. Redness noted to groin area. Multiple scratch [place] on back, buttocks, and left thigh. SEE BIOPHYSICAL. Seizure pads in place due to pt's hx of seizures. Call light is within reach. No complaints at this time, will continue to monitor.
[2019-12-24 05:50] VITALS: BMI 32.3
[2019-12-24 08:00] VITALS: BP 97/62; PULSE 74; RESP 18; TEMP 36.4; O2SAT 97
--- NOTE | 2019-12-24 08:06 | HMH.PHAVTE ---
[facility] Pharmacy VTE Monitoring - Patient Demographics Admission date: 12/23/19 Report Date: 12/24/19 Time: 08:06 Allergies/Adverse Reactions: Patient Allergies No Known Allergies Allergy (Verified 11/03/19 14:45) Height: 1.91 m Weight: 117.991 kg Patient Problems: Current Active Problems Weakness (Acute) History of traumatic brain injury (Acute) Seizure disorder (Acute) Polycythemia (Acute) - VTE Risk Labs: VTE Related Lab Results Hgb 18.8 g/dL (14.1-18.0) H* 12/23/19 16:25 Hct 51.5 % (42.0-52.0) 12/23/19 16:25 Plt Count 277 K/mm3 (142-424) 12/23/19 16:25 BUN 18 mg/dl (9-20) 12/23/19 16:25 Creatinine 0.90 mg/dl (0.66-1.25) 12/23/19 16:25 Estimated Creat Clear 200 mL/min (50-200) 12/23/19 16:25 Was VTE Risk Assessment Performed: Yes VTE Score: 2 VTE Risk Level: Very Low Risk - Prophylaxis VTE Prophylaxis Ordered?: Yes Types of VTE Prophylaxis: TEDS Knee High Location of Applied Device: Bilateral Lower Extremeties - VTE Diagnosis Confirmed Treatment or plan recommended: Continue Current Treatment
--- NOTE | 2019-12-24 08:07 | HMH.PHAINT ---
MEDICATION RECONCILIATION COMPLETED ON PATIENT USING EXTERNAL FILL HISTORY FROM PHARMACY. -PEARL ESPINOSA, GARRETTD
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
--- NOTE | 2019-12-24 09:05 | XR_ITS ---
PROCEDURE: XR CHEST PORTABLE CLINICAL HISTORY: sob COMPARISON: CXR CHEST(2 VIEWS-NOT PORTABLE) from 01/06/[address] CHEST W/O CONTRAST from 01/06/2017 XR CHEST 2V from 11/03/2019 FINDINGS: The cardiomediastinal silhouette and pulmonary vascularity are within normal limits. The lungs are clear without infiltrates, suspicious nodules, or pleural effusions. Calcified granulomas present in the left lung base. Hyperostosis is present between the right 4th 5th and 6th ribs. No acute bony abnormalities. IMPRESSION: No acute findings. Dictated by: Aric Anaya MD 12/24/2019 12:54 Electronically signed by Aric Anaya MD in [place] 12/24/2019 12:54
[2019-12-24 10:13] LABS: Coronavirus 19 IgG Antibody Negative (Negative); Coronavirus 19 IgM Antibody Negative (Negative)
[2019-12-24 10:14] LABS: Erythrocyte Sedimentation Rate 6 mm/hr (0-15)
[2019-12-24 13:39] LABS: Microscopic, Urine URINE MICROSCOPIC (MICROSCOPIC)
[2019-12-24 14:10] LABS: Appearance,Urine CLEAR (Clear); Bilirubin,Urine Negative (Negative); Blood, Urine Negative (Negative); Color,Urine DK YELLOW (Yellow); Glucose,Urine (UA) Negative (Negative); Ketones,Urine Negative (Negative); Leukocyte Esterase,Urine Negative (Negative); Nitrate,Urine Negative (Negative); PH,Urine 5.5 (5.0-8.5); Protein,Urine Negative (Negative); Specific Gravity, Urine >= 1.030 (1.005-1.030)
[2019-12-24 14:22] LABS: Mucus,Urine Trace /lpf; Squamous Epithelial Cell,Urine Occasional #/hpf (0-5)
[2019-12-24 16:00] VITALS: BP 114/75; PULSE 72; RESP 16; TEMP 37.1; O2SAT 96
--- NOTE | 2019-12-24 18:26 | PC.NURSE ---
PT IS RESTING IN BED. PT STATED THIS AFTERNOON HE COULD NOT GET COMFORTABLE BECAUSE HIS IV WAS REALLY BOTHERING HIM. PT STATED IF IT'S NOT GOING TO BE USED FOR ANYTHING JUST TAKE IT OUT. PT HAS USED THE URINAL TO VOID T/O THE SHIFT. EATING AND DRINKING WELL. PT REQUESTED 2 TRAYS FOR LUNCH. LUNG SOUNDS CLEAR. BOWEL SOUNDS NORMAL. WILL CONTINUE TO MONITOR.
[2019-12-24 20:00] VITALS: BP 111/72; PULSE 73; RESP 16; TEMP 36.9; O2SAT 97
--- NOTE | 2019-12-24 20:06 | PC.NURSE ---
PT REQUESTED FOR IV TO BE DC'D. PCP NOTIFIED AND STATED IT WAS OKAY TO DC IV.
[2019-12-25 03:49] VITALS: BP 113/83; RESP 16; TEMP 36.8; O2SAT 99
[2019-12-25 05:00] VITALS: BMI 32.1
[2019-12-25 08:00] VITALS: BP 125/72; PULSE 73; RESP 18; TEMP 36.7; O2SAT 97
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
--- NOTE | 2019-12-25 10:26 | HMH.OTOPEV ---
PHYSICIAN CERTIFICATION: I certify the specified therapy services for Bijan Dave are required, authorized, and reviewed every 30 days.
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
[2019-12-25 15:54] VITALS: BP 124/77; PULSE 65; RESP 18; TEMP 36.8; O2SAT 97
--- NOTE | 2019-12-25 15:56 | PC.NURSE ---
PT IS RESTING IN BED. NO COMPLAINTS OF DISCOMFORT. EATING AND DRINKING WELL. ALERT AND ORIENTED X4. PT TOLERATED SITTING UP IN THE CHAIR TILL AFTER LUNCH. EATING AND DRINKING WELL. PT HAS REDNESS AND ABRASIONS NOTED TO ABDOMINAL FOLD THAT HE STATES COMES FROM HIS DEPENDS THAT HE WAS WEARING BEFORE HE CAME TO THE HOSPITAL. PT NEEDS ENCOURAGEMENT TO TURN AND REPOSITION IN THE BED. VSS. LUNG SOUNDS CLEAR. BOWEL SOUNDS NORMAL. NO IV ACCESS. PT HAD A LARGE LOOSE BOWEL MOVEMENT THIS SHIFT. WILL CONTINUE TO MONITOR.
--- NOTE | 2019-12-25 19:21 | PC.NURSE ---
report given to panchito
[2019-12-25 20:00] VITALS: BP 124/74; PULSE 81; RESP 16; TEMP 36.9; O2SAT 98; O2SAT 99
--- NOTE | 2019-12-26 00:20 | PC.NURSE ---
He is on seizure precautions. A&OX4. Received PRN pain medication for left leg pain and a headache. He turns and repositions himself. Refused turn and reposition per staff. Have visualized him turning himself. Left buttock with small shearing area. He was educated to turn himself more frequently to prevent breakdown. Verbalized understanding and demonstrated proper turning. He received a complete bed bath and linen change. Continues on RA. Nicotine patch on LUE. Hx of CVA with left-sided weakness.
[2019-12-26 03:51] VITALS: BP 116/68; PULSE 61; RESP 18; TEMP 36.5; O2SAT 99
[2019-12-26 06:10] VITALS: BMI 32.7
[2019-12-26 08:00] VITALS: BP 139/72; PULSE 75; RESP 19; TEMP 36.8; O2SAT 99
--- NOTE | 2019-12-26 08:38 | HMH.ACPN2 ---
Internal Medicine - PN: Subj *Date: 12/26/19 *Time: 08:38 Interval history: Patient had an uneventful night. Voices no new complaints. We are looking at placement options. Good appetite. There is no chest pain, no dyspnea, does have some minimal discomfort in his left lower extremity. It is well perfused, the calf is soft and nontender. There is no evidence of trauma. Skin looks good. Exam Vital signs and Labs for Last 24 Hours: Temp Pulse Resp BP Pulse Ox 97.7 F 61 18 116/68 99 12/26/19 03:51 12/26/19 03:51 12/26/19 03:51 12/26/19 03:51 12/26/19 03:51 I & O for Last 24 hours: Intake & Output 12/23/19 12/24/19 12/25/19 12/26/19 23:59 23:59 23:59 23:59 Intake Total 2300 / 2300 2820 / 2820 Output Total 300 / 300 1150 / 1150 1450 / 1625 175 / 175 Balance -300 / 180 1150 / 1150 1370 / 1195 -175 / -175 Weight 260 lb 3 oz 260 lb 2 oz 258 lb 8 oz 263 lb 8 oz - Constitutional cooperative - *Routine HEENT Exam Head: Absent: atraumatic Eye: Absent: conjunctival icterus, nystagmus ENT: Present: mucous membranes moist - *Routine Neck Exam Comments: Trach in the midline. - *Routine Respiratory Exam Present: CTA bilaterally. Absent: accessory muscle use - *Routine Cardiovascular Exam Present: RRR, Normal S1, Normal S2. Absent: murmur - *Routine Abdominal Exam Present: soft, normoactive bowel sounds. Absent: tenderness, distended, organomegaly - *Routine Extremities Exam Present: normal capillary refill. Absent: clubbing, edema, full ROM, calf tenderness, palpable cord - *Routine Skin Exam Present: intact. Absent: cyanosis - *Routine Neurological Exam Present: motor deficit. Absent: normal tone - Routine Psychiatric Exam Present: normal affect, cooperative Assessment and Plan (1) History of traumatic brain injury Current visit: Yes Status: Acute Category: Medical Code(s): Z87.820 - Personal history of traumatic brain injury (2) Seizure disorder Current visit: Yes Status: Acute Category: Medical Code(s): G40.909 - Epilepsy, unspecified, not intractable, without status epilepticus (3) Depression Current visit: Yes Status: Acute Qualifiers: Depression Type: major depressive disorder Major depression recurrence: unspecified whether recurrent Active/Remission status: currently active Major depression episode severity: moderate Qualified Code(s): F32.1 - Major depressive disorder, single episode, moderate Category: Medical Code(s): F32.9 - Major depressive disorder, single episode, unspecified (4) Obesity (BMI 30.0-34.9) Current visit: Yes Status: Acute Category: Medical Code(s): E66.9 - Obesity, unspecified (5) Tobacco use Current visit: Yes Status: Acute Category: Social Hx Code(s): Z72.0 - Tobacco use (6) Social problem Current visit: Yes Status: Acute Category: Social Hx Code(s): Z65.9 - Problem related to unspecified psychosocial circumstances (7) Weakness Current visit: Yes Status: Chronic Category: Medical Code(s): R53.1 - Weakness (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ronic Qualifiers: Encounter type: sequela Loss of consciousness presence/duration: with LOC of unspecified duration Qualified Code(s): S06.9X9S - Unspecified intracranial injury with loss of consciousness of unspecified duration, sequela Category: Medical Code(s): S06.9X9A - Unspecified intracranial injury with loss of consciousness of unspecified duration, initial encounter
--- NOTE | 2019-12-26 14:09 | SW/DCPLANNER ---
Addendum entered by Lynn Schwartz 12/26/19 15:42: Annette from [facility] has confirmed patient information has been received and services will be resumed. Addendum entered by Lynn Schwartz 12/26/19 15:13: [facility] has denied this patient. I have also left voicemails with [facility] ([phone]) and [facility] ([phone]) in [place]. These are LTC facilities for TBI patients. Addendum entered by Lynn Schwartz 12/26/19 14:16: Heaven with [facility] is involved with this patients case. Heaven did ask patient a series of questions via phone today. Heaven has also stated that patient will not be able to return sister and she will assist me with placement for this patient. Original Note: At this time patient information has been faxed to in review with: [facility], [facility], [facility] ([place]), [facility]), [facility], [facility] and [facility]. Voicemail has been left with: [facility] ([place]), [facility] ([place]), [facility] ([place]), [facility] ([place]), and [facility] ([facility]). Facilities that have currently denied/no beds: [place], [place], [place], [facility], [facility], [facility] ([place] [facility] [place]), [facility], [facility], [facility], [facility], [facility] and [facility].
--- NOTE | 2019-12-26 15:42 | SW/DCPLANNER ---
Addendum entered by Lynn Schwartz 12/26/19 15:51: [facility] has denied this patient at this time. Original Note: At this time facilities reviewing referral: [facility], [facility] ([place]), [facility] ([place]), [facility], [place], [facility] and [facility]. Facilities that voicemails have been left with Admissions: [facility], [facility], [facility], [facility], [facility], and [facility] in [place]. Also [facility] and [facility] both for TBI patients in [facility]. Facilities that have denied/no beds: [place], [place], [place], [facility], [facility], [facility] ([place]), [facility], [facility], [place], [facility], [facility], [facility] and [facility]. Heaven ([phone]) with [facility] is also involved in this patients case. Heaven did speak with patient this afternoon via phone and asked patient a variety of questions. Heaven has stated that patient is NOT safe to return home with sister. Sister is currently at [facility] in [place] per Heaven. Heaven stated that she is willing to assist me with placement. I will continue to follow up with Heaven regarding placement/discharge planning for this patient.
[2019-12-26 16:00] VITALS: BP 114/72; PULSE 81; RESP 17; TEMP 36.7; O2SAT 96
[2019-12-26 19:58] VITALS: O2SAT 97
[2019-12-26 20:00] VITALS: BP 124/69; PULSE 74; RESP 17; TEMP 36.9; O2SAT 95
[2019-12-27 04:00] VITALS: BP 111/67; PULSE 68; RESP 16; TEMP 36.6; O2SAT 99
[2019-12-27 05:40] VITALS: BMI 32.7
[2019-12-27 08:00] VITALS: BP 113/64; PULSE 74; RESP 20; TEMP 36.8; O2SAT 96
--- NOTE | 2019-12-27 09:25 | HMH.ACPN2 ---
Internal Medicine - PN: Subj *Date: 12/27/19 *Time: 14:23 Interval history: 39-year-old male patient sitting up in bed watching TV in no apparent distress this morning. He denies any concerns or pain during the night. Explained to him the situation of trying to find him placement, he reports understanding and is waiting patiently. Exam Vital signs and Labs for Last 24 Hours: Temp Pulse Resp BP Pulse Ox 98.3 F 74 20 113/64 96 12/27/19 08:00 12/27/19 08:00 12/27/19 08:00 12/27/19 08:00 12/27/19 08:00 I & O for Last 24 hours: Intake & Output 12/24/19 12/25/19 12/26/19 12/27/19 23:59 23:59 23:59 23:59 Intake Total 2300 / 2300 2820 / 2820 620 / 620 Output Total 1150 / 1150 1450 / 1625 975 / 975 800 / 800 Balance 1150 / 1150 1370 / 1195 -975 / -975 -180 / -180 Weight 260 lb 2 oz 258 lb 8 oz 263 lb 8 oz 263 lb 5 oz - Constitutional no acute distress - *Routine HEENT Exam ENT: Present: mucous membranes moist - *Routine Neck Exam Absent: JVD Comments: Healed Trach Stoma - *Routine Respiratory Exam Present: rhonchi. Absent: accessory muscle use - *Routine Cardiovascular Exam Present: RRR - *Routine Abdominal Exam Present: soft, normoactive bowel sounds. Absent: tenderness, firm - *Routine Extremities Exam Present: pulses intact. Absent: calf tenderness - *Routine Skin Exam Present: intact, warm. Absent: jaundice - *Routine Neurological Exam Present: alert - Routine Psychiatric Exam Present: normal affect Assessment and Plan (1) History of traumatic brain injury Current visit: Yes Status: Acute Category: Medical Code(s): Z87.820 - Personal history of traumatic brain injury (2) Seizure disorder Current visit: Yes Status: Acute Category: Medical Code(s): G40.909 - Epilepsy, unspecified, not intractable, without status epilepticus (3) Depression Current visit: Yes Status: Acute Qualifiers: Depression Type: major depressive disorder Major depression recurrence: unspecified whether recurrent Active/Remission status: currently active Major depression episode severity: moderate Qualified Code(s): F32.1 - Major depressive disorder, single episode, moderate Category: Medical Code(s): F32.9 - Major depressive disorder, single episode, unspecified (4) Obesity (BMI 30.0-34.9) Current visit: Yes Status: Acute Category: Medical Code(s): E66.9 - Obesity, unspecified (5) Tobacco use Current visit: Yes Status: Acute Category: Social Hx Code(s): Z72.0 - Tobacco use (6) Social problem Current visit: Yes Status: Acute Category: Social Hx Code(s): Z65.9 - Problem related to unspecified psychosocial circumstances (7) Weakness Current visit: Yes Status: Chronic Category: Medical Code(s): R53.1 - Weakness (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ronic Qualifiers: Encounter type: sequela Loss of consciousness presence/duration: with LOC of unspecified duration Qualified Code(s): S06.9X9S - Unspecified intracranial injury with loss of consciousness of unspecified duration, sequela Category: Medical Code(s): S06.9X9A - Unspecified intracranial injury with loss of consciousness of unspecified duration, initial encounter - Assessment and plan all Dx Assessment and Plan for all problems:: Rounded with Dr. Maya, all orders per Dr. Maya: 1. Awaiting to find facility for placement
--- NOTE | 2019-12-27 13:48 | SW/DCPLANNER ---
Addendum entered by Lynn Schwartz 12/29/19 09:41: This patient will discharge to [facility] today. All discharge information has been faxed to Heaven at [facility] along with 30 day exempt. Patient will discharge via ambulance and patients sister is suppose to deliver clothing and wheelchair. Addendum entered by Lynn Schawrtz 12/28/19 14:33: This patient has been accepted to [facility] per Heaven. Heaven with [facility] has requested a nasal COVID prior to admission. Patient is agreeable with this plan. I have attempted to contact Heaven with [facility] (no answer VM left) regarding this plan. I will also inform Valery with [facility]. Patient will discharge tomorrow if COVID results are NEGATIVE. Addendum entered by Lynn Schwartz 12/28/19 14:05: Currently [facility] in [place] and [facility] (since Daina spoke with facility) is interested in this patient. I will continue to follow up with facilities. Addendum entered by Lynn Schwartz 12/28/19 11:45: At this time I have received a denial from: [facility] and [facility]. I am currently waiting to hear back from: [facility], [place], [facility], [facility], [facility], [facility], [facility], [facility], and [facility]. Voicemails have been left with: [facility], [facility], [facility]. Heaven with [facility]: will fax me additional facilities to attempt to contact, will get in contact with patients family, will continue to speak with her track repair supervisor regarding additional plans, will speak with [facility] Patient stated that he spoke with his sister (eKlli) last night. Kelli stated that she would be discharged from [facility] today and would deliver patient his wheelchair from home if she could find transportation. Original Note: Update on placement: facilities denied: [place], [place], [place], [facility], [facility], [facility], [facility], [facility], [facility], [facility], [facility], [facility], [facility], [facility], [place], [facility], [facility], [facility] Faxed referral: [facility], [place], [facility], [facility], [facility], [facility], [facility], [facility] Voicemails left: [facility], [facility], [facility], [facility], [place], [facility], [facility] Heaven with [facility] is working with her track repair supervisor to discuss a discharge plan due to not being able to find placement. I also informed Heaven that patient does have two brothers (Abhilash and Elmer) in [place]. I have also asked Heaven to assist in getting patients wheelchair delivered to [facility]. Heaven has stated that patients sister will be released from [facility] tomorrow. I have also continue to update Valery with [facility] and she has stated that she received signed documentation from Dr Maya/myself. Valery has stated that she has everything she needs from me (will need MAP 10) and will start process. Patient is up for review on 01/10/20 with [facility] and Valery has stated that the earliest she could get him into the [facility] facility would be the first-second week of January. Valery will also speak with facilities that I have faxed patient information to for gap between discharge and possible admission to [facility]. I will continue to follow up with patient, all facilities, and Valery with [facility].
[2019-12-27 16:00] VITALS: BP 128/63; PULSE 69; RESP 18; TEMP 37; O2SAT 97
--- NOTE | 2019-12-27 18:08 | PC.NURSE ---
PATIENT HAS BEEN LYING IN BED MOST OF SHIFT. HE DID GET UP TO THE CHAIR WITH PT. USES URINAL PRIMARILY BUT DOES HAVE SOME EPISODES OF INCONTINENCE USING BRIEF. HE DENIES PAIN AT THIS TIME. APPLIED MOISTURE BARRIER CREAM ON COCCYX DUE TO MOIST PEELING SKIN. APPLIED POWDER TO DARLIN AREA. CALL LIGHT WITHIN REACH WILL CONTINUE TO MONITOR.
--- NOTE | 2019-12-27 19:04 | PC.NURSE ---
report given to von
[2019-12-27 19:33] VITALS: BP 118/71; PULSE 71; RESP 18; TEMP 36.8; O2SAT 94
--- NOTE | 2019-12-28 03:24 | PC.NURSE ---
Pt has rested well this shift. Pt was educated on the importance of turning his body in bed as much as possible, pt verbalized understanding. Dressing on pressure area on buttocks remains CDI. Call light is within reach, seizure pads in place. No complaints at this time will continue to monitor.
[2019-12-28 04:00] VITALS: BP 115/68; PULSE 77; RESP 18; TEMP 36.6; O2SAT 98
[2019-12-28 05:00] VITALS: BMI 31.4
[2019-12-28 08:00] VITALS: BP 118/73; PULSE 71; RESP 18; TEMP 36.5; O2SAT 99
--- NOTE | 2019-12-28 08:51 | HMH.ACPN2 ---
Internal Medicine - PN: Subj *Date: 12/28/19 *Time: 08:15 Interval history: Patient sitting up in bed very pleasant. States he is feeling fine today. Exam Vital signs and Labs for Last 24 Hours: Temp Pulse Resp BP Pulse Ox 97.7 F 71 18 118/73 99 12/28/19 08:00 12/28/19 08:00 12/28/19 08:00 12/28/19 08:00 12/28/19 08:00 I & O for Last 24 hours: Intake & Output 12/25/19 12/26/19 12/27/19 12/28/19 11:59 11:59 11:59 11:59 Intake Total 2440 / 2440 1720 / 1720 620 / 620 2060 / 2060 Output Total 1350 / 1350 1425 / 1425 1600 / 1600 2800 / 2800 Balance 1090 / 1090 295 / 295 -980 / -980 -740 / -740 Weight 258 lb 8 oz 263 lb 8 oz 263 lb 5 oz 253 lb - Constitutional no acute distress, chronically ill appearing - *Routine HEENT Exam Head: Present: normocephalic Eye: Present: EOMI, PERRL ENT: Present: mucous membranes moist Comments: Concave to right skull - *Routine Neck Exam Present: supple. Absent: lymphadenopathy Comments: Old trach stoma with slight opening - *Routine Respiratory Exam Present: CTA bilaterally - *Routine Cardiovascular Exam Present: RRR - *Routine Abdominal Exam Present: soft, normoactive bowel sounds. Absent: tenderness - *Routine Extremities Exam Present: normal capillary refill. 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 - *Routine Skin Exam Present: warm. Absent: rash - *Routine Neurological Exam Present: alert, oriented X3 Weakness to lower extremities related to TBI Weakness to left upper and lower extremity related to old CVA - Routine Psychiatric Exam Present: normal affect Assessment and Plan (1) History of traumatic brain injury Current visit: Yes Status: Acute Category: Medical Code(s): Z87.820 - Personal history of traumatic brain injury (2) Seizure disorder Current visit: Yes Status: Acute Category: Medical Code(s): G40.909 - Epilepsy, unspecified, not intractable, without status epilepticus (3) Depression Current visit: Yes Status: Acute Qualifiers: Depression Type: major depressive disorder Major depression recurrence: unspecified whether recurrent Active/Remission status: currently active Major depression episode severity: moderate Qualified Code(s): F32.1 - Major depressive disorder, single episode, moderate Category: Medical Code(s): F32.9 - Major depressive disorder, single episode, unspecified (4) Obesity (BMI 30.0-34.9) Current visit: Yes Status: Acute Category: Medical Code(s): E66.9 - Obesity, unspecified (5) Tobacco use Current visit: Yes Status: Acute Category: Social Hx Code(s): Z72.0 - Tobacco use (6) Social problem Current visit: Yes Status: Acute Category: Social Hx Code(s): Z65.9 - Problem related to unspecified psychosocial circumstances (7) Weakness Current visit: Yes Status: Chronic Category: Medical Code(s): R53.1 - Weakness (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ronic Qualifiers: Encounter type: sequela Loss of consciousness presence/duration: with LOC of unspecified duration Qualified Code(s): S06.9X9S - Unspecified intracranial injury with loss of consciousness of unspecified duration, sequela Category: Medical Code(s): S06.9X9A - Unspecified intracranial injury with loss of consciousness of unspecified duration, initial encounter - Assessment and plan all Dx Assessment and Plan for all problems:: Rounded with Dr. Maya all orders per Dr. Maya Waiting placement
[2019-12-28 14:59] LABS: Adenovirus,PCR Not Detected (NotDetected); Bordetella Pertussis Not Detected (NotDetected); Chlamydophila Pneumoniae, PCR Not Detected (NotDetected); Coronavirus 19, PCR Not Detected (NotDetected); Coronavirus 229E Not Detected (NotDetected); Coronavirus NL63 Not Detected (NotDetected); Coronavirus OC43 Not Detected (NotDetected); Coronovirus HKU1,PCR Not Detected (NotDetected); Human Metapneumovirus Not Detected (NotDetected); Influenza A, PCR Not Detected (NotDetected); Influenza AH1, 2009 Not Detected (NotDetected); Influenza AH1, PCR Not Detected (NotDetected); Influenza AH3,PCR Not Detected (NotDetected); Influenza B, PCR Not Detected (NotDetected); Mycoplasma Pneumoniae, PCR Not Detected (NotDected); Parainfluenza 1, PCR Not Detected (NotDetected); Parainfluenza 2, PCR Not Detected (NotDetected); Parainfluenza 3, PCR Not Detected (NotDetected); Parainfluenza 4, PCR Not Detected (NotDetected); Respiratory Syncytial Virus Not Detected (NotDetected); Rhinovirus/Enterovirus Not Detected (NotDetected)
--- NOTE | 2019-12-28 15:24 | PC.NURSE ---
No issues noted this shift. Plan is for pt to transfer to [place] tomorrow.
[2019-12-28 15:51] VITALS: BP 126/64; PULSE 82; RESP 16; TEMP 36.9; O2SAT 96
[2019-12-28 20:00] VITALS: O2SAT 95
[2019-12-28 20:07] VITALS: BP 131/78; PULSE 79; RESP 20; TEMP 36.6; O2SAT 95
[2019-12-29 05:00] VITALS: BMI 33.3
[2019-12-29 05:15] VITALS: BP 143/99; PULSE 69; RESP 18; TEMP 36.7; O2SAT 92
--- NOTE | 2019-12-29 06:26 | PC.NURSE ---
Pt has slept t/o this shift. VSS. Call light within reach, seizure pads in place with no seizure activity noted. Will continue to monitor.
[2019-12-29 07:45] VITALS: BP 118/69; PULSE 70; RESP 16; TEMP 36.5; O2SAT 100
[2019-12-29 08:00] VITALS: O2SAT 100
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
--- NOTE | 2019-12-29 14:00 | PC.NURSE ---
THIS RN PROVIDED REPORT TO [facility] AT [facility].
== END 2019-12-29 12:30 ==
LOC: ER 17:20 → 2ND 17:28
PROVIDERS: Admitting Provider Internal Medicine Adolescent Medicine; Emergency Provider Emergency Medicine; Visit Provider Emergency Medicine
DX: R53.1 Weakness (principal); I10 Essential (primary) hypertension; Z72.0 Tobacco use; Z99.3 Dependence on wheelchair; Z87.820 Personal history of traumatic brain injury; G40.909 Epilepsy, unspecified, not intractable, without status epilepticus; Z65.9 Problem related to unspecified psychosocial circumstances; T74.01XA Adult neglect or abandonment, confirmed, initial encounter; Y07.411 Sister, perpetrator of maltreatment and neglect; G81.94 Hemiplegia, unspecified affecting left nondominant side; S06.9X0S Unspecified intracranial injury without loss of consciousness, sequela
CPT/HCPCS: 71045; 80053; 81001; 85025; 85651; 86328; 87581; 87633; 87798; 97110; 97161; 97165; 97530; 97535; 99284; G0378

== ENCOUNTER → 2020-01-01 09:54 | Outpatient (CLI) | payer OTHER, SELFPAY ==
[2020-01-02 15:27] LABS: Covid-19 Nasal PCR Sendout Lex NOT DETECTED
== END ==
PROVIDERS: Visit Provider Emergency Medicine
DX: Z03.818 Encounter for observation for suspected exposure to other biological agents ruled out (principal)
CPT/HCPCS: U0004

== ENCOUNTER → 2020-01-03 08:06 | Outpatient (CLI) | payer OTHER, SELFPAY ==
[2020-01-03 08:25] LABS: Basophils # 0.1 K/mm3 (0-0.2); Basophils % 1.5 % (0.1-2.0); Eosinophils # 0.4 K/mm3 (0.0-0.4); Eosinophils % 4.8 % (0.1-12.0); Hematocrit 52.1 % (42.0-52.0); Hemoglobin 17.7 g/dL (14.1-18.0); Lymphocytes # 3.6 K/mm3 (0.7-4.5); Lymphocytes % 39.4 % (10-50); Mean Corpuscular Hemoglobin 30.8 pg (27.0-31.2); Mean Corpuscular Volume 90.5 fl (80-94); Mean Platelet Volume 8.2 fl (7.4-10.4); Monocytes # 0.5 K/mm3 (0.1-1.0); Monocytes % 5.5 % (1.7-9.3); Neutrophils # 4.4 K/mm3 (1.8-7.8); Neutrophils % 48.9 % (37.0-80.0); Platelet Count 289 K/mm3 (142-424); Red Blood Count 5.75 M/mm3 (4.60-6.20); Red Cell Distribution Width 14.2 % (11.5-17.5)
[2020-01-03 09:09] LABS: Chloride 103 mmol/L (98-107); Sodium 139 mmol/L (136-145)
[2020-01-03 09:10] LABS: Potassium 4.1 mmoL/L (3.5-5.1)
[2020-01-03 09:12] LABS: Alanine Aminotransferase 39 U/L (12-78); Albumin/Globulin Ratio 1.5 (1.1-1.8); Alkaline Phosphatase 54 U/L (38-126); Anion Gap 11.1 mEq/L (5-15); Aspartate Amino Transferase 29 U/L (17-59); Bilirubin,Total 0.7 mg/dl (0.2-1.3); Blood Urea Nitrogen 10 mg/dl (9-20); Carbon Dioxide 29 mmol/L (22.0-30.0); Estimated Glomerular Filt Rate 126 ml/min (>60); GFR (African American) 153 ML/MIN (>60); Globulin 2.6 g/dL (1.3-3.2); Total Protein,Serum 6.6 g/dl (6.3-8.2)
[2020-01-03 09:13] LABS: Calcium 9.3 mg/dl (8.4-10.2); Glucose 79 mg/dl (74-100)
== END ==
PROVIDERS: Visit Provider Emergency Medicine
DX: G40.909 Epilepsy, unspecified, not intractable, without status epilepticus (principal); Z87.820 Personal history of traumatic brain injury
CPT/HCPCS: 36415; 80053; 85025

== ENCOUNTER → 2020-02-26 13:06 | Outpatient (CLI) | payer MEDICAID, SELFPAY ==
[2020-02-27 15:22] LABS: Covid-19 Nasal PCR Sendout Lex Not Detected
== END ==
PROVIDERS: Visit Provider Emergency Medicine
DX: Z20.828 Contact with and (suspected) exposure to other viral communicable diseases (principal)
CPT/HCPCS: U0004

== ENCOUNTER → 2020-03-03 07:29 | Outpatient (CLI) | payer MEDICAID, SELFPAY ==
[2020-03-05 16:42] LABS: Covid-19 Nasal PCR Sendout Lex Not Detected
== END ==
PROVIDERS: PCP Emergency Medicine; Visit Provider Emergency Medicine
DX: Z20.828 Contact with and (suspected) exposure to other viral communicable diseases (principal)
CPT/HCPCS: U0004

== ENCOUNTER 2024-02-29 09:58 | Outpatient (CLI) | payer BC, SELFPAY ==
[2024-02-29 20:12] LABS: Alanine Aminotransferase 41 U/L (12-78); Albumin Level 3.8 g/dl (3.5-5.0); Albumin/Globulin Ratio 1.4 (1.1-1.8); Alkaline Phosphatase 49 U/L (38-126); Anion Gap 8.7 mEq/L (5-15); Aspartate Amino Transferase 32 U/L (17-59); Bilirubin,Total 0.8 mg/dl (0.2-1.3); Blood Urea Nitrogen 9 mg/dl (9-20); Calcium 9.2 mg/dl (8.4-10.2); Carbon Dioxide 27 mmol/L (22.0-30.0); Chloride 106 mmol/L (98-107); Chol/HDL Ratio 4.3 (1-3.5); Cholesterol 181 mg/dl (140-200); Estimated Glomerular Filt Rate 93 ml/min (>60); GFR (African American) 112 ML/MIN (>60); Globulin 2.8 g/dL (1.3-3.2); Glucose 89 mg/dl (74-100); HDL Cholesterol 42 mg/dl (40-60); Potassium 3.7 mmoL/L (3.5-5.1); Sodium 138 mmol/L (136-145); Total Protein,Serum 6.6 g/dl (6.3-8.2); Triglycerides 116 mg/dl (30-150); VLDL Cholesterol 23 mg/dL (0-40)
[2024-02-29 20:24] LABS: Direct LDL Cholesterol 118.22 mg/dL (100-129)
[2024-02-29 20:29] LABS: 25-OH Vitamin D, Total 25.5 ng/mL (30-100)
[2024-02-29 20:44] LABS: Thyroid Stimulating Hormone 2.31 uIU/mL (0.465-4.68)
[2024-02-29 21:15] LABS: HIV (1&2) Antibody Rapid NONREACTIVE (NONREACTIVE)
[2024-02-29 21:48] LABS: Basophils # 0.1 K/mm3 (0-0.2); Basophils % 1.5 % (0.1-2.0); Eosinophils # 0.5 K/mm3 (0.0-0.4); Eosinophils % 5.1 % (0.1-12.0); Hematocrit 51.3 % (42.0-52.0); Hemoglobin 16.6 g/dL (14.1-18.0); Lymphocytes # 2.2 K/mm3 (0.7-4.5); Lymphocytes % 23.4 % (10-50); Mean Corpuscular HGB Conc 32.4 g/dL (31.8-35.4); Mean Corpuscular Volume 92.6 fl (80-94); Mean Platelet Volume 9.4 fl (7.4-10.4); Monocytes # 0.6 K/mm3 (0.1-1.0); Monocytes % 5.9 % (1.7-9.3); Neutrophils % 64.2 % (37.0-80.0); Platelet Count 224 K/mm3 (142-424); Red Blood Count 5.54 M/mm3 (4.60-6.20); Red Cell Distribution Width 14.3 % (11.5-17.5); White Blood Count 9.4 K/mm3 (4.8-10.8)
[2024-03-06 18:20] LABS: Levetiracetam (Keppra) 16.8 ug/mL (10.0-40.0)
[2024-04-24 15:59] LABS: HBsAg Screen Negative; Hep A Ab, IGM Negative; Hep B Core Ab, IgM Negative
[2024-04-24 16:00] LABS: HCV Ab REACTIVE
== END 2024-02-29 23:59 | disposition home or self-care (01) ==
LOC: LAB.DROPOF 03-01 10:29
PROVIDERS: PCP Nurse Practitioner Family; Visit Provider Nurse Practitioner Family
DX: G81.94 Hemiplegia, unspecified affecting left nondominant side (principal); F10.11 Alcohol abuse, in remission; F19.11 Other psychoactive substance abuse, in remission; I10 Essential (primary) hypertension; R56.1 Post traumatic seizures; E66.9 Obesity, unspecified; F32.9 Major depressive disorder, single episode, unspecified; B18.2 Chronic viral hepatitis C; S06.9X9A Unspecified intracranial injury with loss of consciousness of unspecified duration, initial encounter; Z99.3 Dependence on wheelchair; Z91.89 Other specified personal risk factors, not elsewhere classified; Z72.0 Tobacco use
CPT/HCPCS: 80050; 80053; 80061; 80074; 80177; 82306; 84443; 85025; 86803; 87086; 87389

== ENCOUNTER 2025-03-26 18:51 | Emergency (ER) | payer MEDICAID, SELFPAY ==
[2025-03-26 18:55] VITALS: BP 113/86; PULSE 80; RESP 20; TEMP 37.1; O2SAT 98; BMI 31.2
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
[2025-03-26 19:58] VITALS: BP 138/85; PULSE 73; RESP 18; TEMP 36.9; O2SAT 100
--- NOTE | 2025-03-27 14:28 | PC.NURSE ---
Patient's sister called requesting an ER doc to refill patient's medications. Spoke with patient's pcp and scheduled an appointment for 340pm today. After calling the sister back she stated that she could not get him to that appointment. PCP office stated that the sister has made numerous appointments with them with them never showing up. Will speak with Dr. Mejia when he comes in today related to these refills. PCP office notified of these concerns.
== END 2025-03-26 19:58 | disposition home or self-care (01) ==
LOC: ER 19:22
PROVIDERS: Emergency Provider Student in an Organized Health Care Education/Training Program; PCP Nurse Practitioner Family
DX: Z76.0 Encounter for issue of repeat prescription (principal)
CPT/HCPCS: 99281; 99283

== ENCOUNTER 2025-03-29 11:46 | Outpatient (CLI) | payer MEDICAID, SELFPAY ==
[2025-03-29 19:29] LABS: Hematocrit 48.7 % (42.0-52.0); Hemoglobin 17.9 g/dL (14.1-18.0); Immature Granulocytes % 0.2 %; Mean Corpuscular HGB Conc 36.8 g/dL (31.8-35.4); Mean Corpuscular Hemoglobin 30.9 pg (27.0-31.2); Mean Corpuscular Volume 84.1 fl (80-94); Nucleated Red Blood Cells % 0 %; Platelet Count 286 K/mm3 (142-424); Red Blood Count 5.79 M/mm3 (4.60-6.20); Red Cell Distribution Width-SD 39.2 fL; White Blood Count 8.8 K/mm3 (4.8-10.8)
[2025-03-29 20:03] LABS: Alanine Aminotransferase 25 U/L (12-78); Albumin Level 4.3 g/dl (3.5-5.0); Albumin/Globulin Ratio 1.7 (1.1-1.8); Alkaline Phosphatase 78 U/L (38-126); Anion Gap 12.8 mEq/L (5-15); Aspartate Amino Transferase 24 U/L (17-59); Bilirubin,Total 2.0 mg/dl (0.2-1.3); Blood Urea Nitrogen 15 mg/dl (9-20); Calcium 9.4 mg/dl (8.4-10.2); Carbon Dioxide 29 mmol/L (22.0-30.0); Chloride 101 mmol/L (98-107); Creatinine,Serum 1.00 mg/dl (0.66-1.25); Estimated Glomerular Filt Rate 82 ml/min (>60); GFR (African American) 99 ML/MIN (>60); Globulin 2.6 g/dL (1.3-3.2); Glucose 99 mg/dl (74-100); Potassium 3.8 mmoL/L (3.5-5.1); Sodium 139 mmol/L (136-145); Total Protein,Serum 6.9 g/dl (6.3-8.2)
== END 2025-03-29 23:59 ==
LOC: LAB.DROPOF 04-02 11:47
PROVIDERS: PCP Student in an Organized Health Care Education/Training Program; Visit Provider Student in an Organized Health Care Education/Training Program
DX: E66.811 Obesity, class 1 (principal); I10 Essential (primary) hypertension; R53.1 Weakness
CPT/HCPCS: 80053; 85025